=== PATIENT | female | born 1965 | race Caucasian/White ===

== ENCOUNTER 2020-04-25 10:37 | Emergency (ER) | payer OTHER ==
[2020-04-25] MEDS ORDERED: NORCO 5-325 TA1 EACH PO (16:24)
[2020-04-25] MEDS ORDERED: ZOFRAN4 M1 PO (16:29)
== END 2020-04-25 16:45 | disposition home or self-care (01) ==
LOC: FER 10:37
DX: M50.223 Other cervical disc displacement at C6-C7 level (principal); Z87.442 Personal history of urinary calculi; Z88.6 Allergy status to analgesic agent
CPT/HCPCS: 72050; 72141